=== PATIENT | female | born 1960 | race Caucasian/White ===

== ENCOUNTER → 2017-08-31 | Outpatient (CLI) | payer BC | END | disposition home or self-care (01) | LOC: C.PAPS 11:21 | PROVIDERS: ATTEND Obstetrics & Gynecology | DX: Z01.419 Encounter for gynecological examination (general) (routine) without abnormal findings (principal) ==

== ENCOUNTER → 2017-09-12 | Outpatient (CLI) | payer BC ==
--- NOTE | 2017-09-12 15:30 | MAMMOGRAPHY REPORT ---
BILATERAL DIGITAL DIAGNOSTIC MAMMOGRAM TOMOSYNTHESIS WITH CAD AND TARGETED RIGHT ULTRASOUND: 09/12/20 17 CLINICAL HISTORY: 57-year-old woman presents to reevaluate clustered microcalcifications in the left 3:00 breast, and also due for annual bilateral mammography. TECHNIQUE: Bilateral breast tomosynthesis in addition to standard 2D mammography was performed. Spot magnification left CC and ML views were also obtained. Current study was also evaluated with a Comp uter Aided Detection (CAD) system. COMPARISON: Comparison is made to exams dated: 09/07/2016 mammogram, 03/10/2016 mammogram, 08/27/2015 mammogram, 08/19/2015 mammogram, 02/23/2011 mammogram, and 09/05/2006 mammogram - [facility]. BREAST COMPOSITION: The tissue of both breasts is extremely dense, which lowers the sensitivity of m ammography. FINDINGS: The glandular pattern is similar to prior mammograms. There is a 6 mm nodular asymmetry in the right breast along the posterior nipple line on the MLO tomosynthesis images (slice 11/40), for which further evaluation with ultrasound was performed. No other suspicious masses, calcifications o r areas of architectural distortion are seen in the right breast. The parenchymal pattern of the left breast is similar to prior mammograms, without evidence of new proctor spicious masses, asymmetries or areas of distortion. There is a grouping of punctate and amorphous m icrocalcifications in the 3:00 middle one third of the left breast, that appears stable based on spot magnification views dating back to at least 08/27/2015, therefore most likely benign with 2 years of stability. Another 12 month follow-up including spot magnification views of the left breast is austen mmended to ensure at least 3 years of stability to confirm benignity. Targeted ultrasound was performed in the right breast 2:00 through 4:00, retroareolar and 5:00 to 7:0 0 axes to assess for the newly visualized 6 mm asymmetry. In the 2:00 right breast, 1 cm from the ni pple, there is a 5.7 mm anechoic simple cyst and adjacent cluster of cysts in the 2:00 right breast, 1 cm from the nipple, measuring 7 mm. No suspicious solid mass is seen and the cysts most likely cor respond to the asymmetry seen on the tomosynthesis images. IMPRESSION: ACR-BI-RADS CATEGORY 3: PROBABLY BENIGN, TARGETED ULTRASOUND ACR-BI-RADS CATEGORY 3: PRO BABLY BENIGN 1. Stable grouped punctate and amorphous microcalcifications in the 3:00 left breast, that are uncha nged dating back to August 2015. With 2 years of stability they are most likely benign but another 12 month follow-up left diagnostic mammogram including spot magnification views is recommended to en sure at least 3 years of stability on the spot magnification views to confirm benignity. 2. A 6 mm asymmetry in the right breast along the posterior nipple line on the MLO view is thought t o correspond to a cluster of cysts/fibrocystic changes seen in the 2:00 right breast on ultrasound. There is no mammographic or targeted sonographic evidence of malignancy in the right breast. 3. Overall, bilateral tomosynthesis mammograms and repeat left spot magnification magnification views are recommended in 12 months. These results recommendations were discussed with the patient at the time of the exam. She tentative ly scheduled a follow-up appointment prior to leaving our department. Approximately 10% of breast cancers are not detected with mammography. A negative mammographic report should not delay biopsy if a clinically suggestive mass is present. Rae Clinton M.D. ay/:09/12/2017 11:38:50 Finishing Inspector: Biju ALAS(R)(M), [facility] letter sent: Follow Up Recommended 3 BI-RADS Code: ACR-BI-RADS Category 3: Probably Benign Ultrasound BI-RADS: ACR-BI-RADS Category 3: Pr obably Benign
== END | disposition home or self-care (01) ==
LOC: C.MAMM 10:52
PROVIDERS: ATTEND Obstetrics & Gynecology
DX: R92.2 Inconclusive mammogram (principal); R92.0 Mammographic microcalcification found on diagnostic imaging of breast

== ENCOUNTER → 2017-09-15 | Outpatient (CLI) | payer BC | END | disposition home or self-care (01) | LOC: C.LABSPEC 12:09 | PROVIDERS: ATTEND Student in an Organized Health Care Education/Training Program | DX: R30.0 Dysuria (principal) ==